=== PATIENT | male | born 1935 | race Caucasian/White ===

== ENCOUNTER 2017-07-02 12:22 | Inpatient (IN) | payer OTHER, MEDICAID ==
[~2017-07-02] VITALS: Ht 175.3 cm; Wt 84.0 kg
[2017-07-02 17:00] VITALS: BP 154/76
[2017-07-02 17:11] VITALS: BP 153/75
[2017-07-02] MEDS ORDERED: NITROGLYCERIN 0.4 MG SL TAB SL PRN (17:15)
[2017-07-02] MEDS ORDERED: MORPHINE SULF INJ 2 MG/ML SYRINGE 1ML IV PRN ×2 (17:15→18:00)
[2017-07-02] MEDS ORDERED: ONDANSETRON HCL 4 MG/2 ML VIAL IV PRN (18:00)
[2017-07-02] MEDS ORDERED: HYDROcodone-ACET 5/325MG TAB PO PRN (18:00)
[2017-07-02] MEDS ORDERED: ACETAMINOPHEN 325 MG TAB PO PRN (18:00)
[2017-07-02] MEDS ORDERED: CLOPIDOGREL BISULFATE 75 MG TAB PO ONE (18:30)
[2017-07-02] MEDS ORDERED: ASPirin 81 mg TAB PO ONE (18:30)
[2017-07-02] MEDS ORDERED: PANTOPRAZOLE 40 MG TAB PO ONE (18:30)
[2017-07-02] MEDS ORDERED: amLODIPine BESYLATE 5 MG TAB PO ONE (18:30)
[2017-07-02] MEDS: SODIUM CHLORIDE 0.9% 1,000 ML IV SCH (18:46)
[2017-07-02] MEDS ORDERED: InsuLIN REG 1unit/0.01ml Soln (100units/ml) SC ONE (19:00)
[2017-07-02 20:00] VITALS: BP 145/73
[2017-07-02] MEDS: ENOXAPARIN SOD 80 MG/0.8ML SYRINGE SC SCH (21:01)
[2017-07-02 21:35] VITALS: BP 145/73
[2017-07-02] MEDS: ATORVASTATIN 20 MG TAB PO SCH (21:37)
[2017-07-02] MEDS: InsuLIN REG 1unit/0.01ml Soln (100units/ml) SC SCH (22:00)
[2017-07-02] MEDS ORDERED: PANTOPRAZOLE 40 MG TAB PO SCH (22:00)
[2017-07-02] MEDS: INSULIN DETEMIR(LEVEMIR) 1unit/0.01ml Soln (100units/ml) SC SCH (22:00)
[2017-07-02] MEDS: GABAPENTIN 300 MG CAP PO SCH (22:07)
[2017-07-02] MEDS: ACCU-CHEK COMFORT CURVE STRIP VI SCH (22:08)
[2017-07-03 02:43] LABS: Urine Bilirubin Negative (Negative); Urine Blood Negative /uL (Negative); Urine Color Colorless (Yellow); Urine Glucose Normal (Normal); Urine Ketone Negative (Negative); Urine Nitrite Negative (Negative); Urine RBC 4 /hpf (0 - 3); Urine Urobilinogen Normal (Negative)
[2017-07-03] MEDS: SODIUM CHLORIDE 0.9% 1,000 ML IV SCH ×2 (03:32→15:11)
[2017-07-03 05:40] VITALS: BP 143/71
[2017-07-03] MEDS: ACCU-CHEK COMFORT CURVE STRIP VI SCH ×4 (06:19→22:03)
[2017-07-03] MEDS: InsuLIN REG 1unit/0.01ml Soln (100units/ml) SC SCH ×5 (06:19→22:03)
[2017-07-03 06:25] LABS: Basophils # (auto) 0 uL; Basophils % (auto) 0.4 % (0.0-2.0); CONDITION Y; Eosinophils # (auto) 0.2 uL; Eosinophils % (auto) 3.9 % (0.0-7.0); Hematocrit 34.3 % (41.0-53.0); Hemoglobin 11.2 g/dL (13.5-17.5); Lymphocytes % (auto) 32.4 % (10.0-50.0); Mean Corpuscular Hemoglobin 28.9 pg (28.0-32.0); Mean Corpuscular Hgb Conc. 32.7 g/dL (32.0-36.0); Mean Corpuscular Volume 88.4 fL (80.0-100.0); Mean Platelet Volume 9.6 fL (7.4-10.4); Monocytes # (auto) 0.7 uL; Monocytes % (auto) 11.2 % (0.0-12.0); Neutrophils # (auto) 3.2 uL; Neutrophils % (auto) 52.1 % (37.0-80.0); Platelet Count (auto) 175 10^3/uL (140-450); Red Cell Distribution Width 16.9 % (11.6-16.0); White Blood Cell 6.1 10^3/uL (4.4-10.8)
[2017-07-03] MEDS: LEVOTHYROXINE SODIUM 25 MCG TAB PO SCH (06:40)
[2017-07-03 06:51] LABS: INR 1.05 (0.9-1.15); Partial Thromboplastin Time 28.4 sec (22.64-33.71); Prothrombin Time 11.5 sec (9.37-12.3)
[2017-07-03 06:53] LABS: BUN/Creatinine Ratio 9.3; Calcium 8.3 mg/dL (8.5-10.1); Potassium 3.3 mmol/L (3.5-5.1)
[2017-07-03] MEDS ORDERED: DEXTROSE (50%) 50ML SYRG IV ONE (07:30)
[2017-07-03] MEDS ORDERED: LIDOCAINE 2%HCL (LOCAL ANESTH.) INJ 20ML MDV ONE (07:51)
[2017-07-03] MEDS ORDERED: IODIXANOL 320MG/ML 100ML BTL IV ONE (07:51)
[2017-07-03 08:00] VITALS: BP 163/73
[2017-07-03] MEDS ORDERED: ANGIOMAX 250 MG VIAL IV ONE (08:13)
[2017-07-03] MEDS ORDERED: fentaNYL CITRATE 100 MCG/2 ML VL ONE (08:14)
[2017-07-03] MEDS ORDERED: MIDAZOLAM HCL 1MG/1ML-2 ML VIAL ONE (08:14)
[2017-07-03] MEDS ORDERED: SODIUM CHL 0.9% 50 ML ONE (08:14)
[2017-07-03 08:22] VITALS: BP 163/77
[2017-07-03] MEDS: amLODIPine BESYLATE 5 MG TAB PO SCH (08:27)
[2017-07-03] MEDS ORDERED: EPTIFIBATIDE INJ (2MG/ML) 10ML VIAL IV ONE (09:13)
[2017-07-03] MEDS ORDERED: CLOPIDOGREL 300 MG TAB ONE (09:13)
[2017-07-03] MEDS ORDERED: ASPirin 325 MG TAB ONE (09:13)
[2017-07-03] MEDS ORDERED: hydrALAZINE HCL 20 MG/ML VL ONE (09:23)
[2017-07-03] MEDS: ASPirin 81 mg TAB PO SCH (10:00)
[2017-07-03] MEDS ORDERED: LISINOPRIL 10 MG TAB PO SCH (10:00)
[2017-07-03] MEDS: CLOPIDOGREL BISULFATE 75 MG TAB PO SCH (10:00)
[2017-07-03 12:15] VITALS: BP 152/69
[2017-07-03] MEDS: PANTOPRAZOLE 40 MG TAB PO SCH (15:09)
[2017-07-03 16:34] VITALS: BP 149/69
[2017-07-03] MEDS ORDERED: GABA-497 PO (16:41)
[2017-07-03] MEDS ORDERED: OMEP20CA74 PO (16:41)
[2017-07-03] MEDS ORDERED: ATOR20TA50 PO (16:41)
[2017-07-03] MEDS ORDERED: LEVEMIR SC (16:41)
[2017-07-03] MEDS ORDERED: AMLO10TA2 PO (16:41)
[2017-07-03] MEDS ORDERED: LEVO137T3 PO (16:41)
[2017-07-03] MEDS ORDERED: CLON0.2T PO (16:41)
[2017-07-03] MEDS: ENOXAPARIN SOD 80 MG/0.8ML SYRINGE SC SCH (21:00)
[2017-07-03] MEDS: INSULIN DETEMIR(LEVEMIR) 1unit/0.01ml Soln (100units/ml) SC SCH (21:51)
[2017-07-03 22:00] VITALS: BP 134/65
[2017-07-03] MEDS: CARVEDILOL 12.5 MG TAB PO SCH (22:02)
[2017-07-03] MEDS: ATORVASTATIN 20 MG TAB PO SCH (22:03)
[2017-07-03] MEDS: GABAPENTIN 300 MG CAP PO SCH (22:03)
[2017-07-04 05:00] VITALS: BP 120/55
[2017-07-04 06:02] LABS: Basophils # (auto) 0 uL; Basophils % (auto) 0.2 % (0.0-2.0); CONDITION Y; Eosinophils # (auto) 0.2 uL; Eosinophils % (auto) 2.7 % (0.0-7.0); Hematocrit 31.4 % (41.0-53.0); Hemoglobin 10.3 g/dL (13.5-17.5); Lymphocytes # (auto) 1.9 uL; Lymphocytes % (auto) 24.1 % (10.0-50.0); Mean Corpuscular Hgb Conc. 32.9 g/dL (32.0-36.0); Mean Corpuscular Volume 88.2 fL (80.0-100.0); Mean Platelet Volume 9.5 fL (7.4-10.4); Monocytes # (auto) 0.8 uL; Monocytes % (auto) 9.8 % (0.0-12.0); Neutrophils # (auto) 4.9 uL; Neutrophils % (auto) 63.2 % (37.0-80.0); Platelet Count (auto) 169 10^3/uL (140-450); Red Cell Distribution Width 16.7 % (11.6-16.0); White Blood Cell 7.7 10^3/uL (4.4-10.8)
[2017-07-04 06:23] LABS: Calcium 7.9 mg/dL (8.5-10.1); Magnesium 1.6 mg/dL (1.6-2.6); Potassium 4.3 mmol/L (3.5-5.1)
[2017-07-04 06:26] LABS: BUN/Creatinine Ratio 8.4
[2017-07-04] MEDS: ACCU-CHEK COMFORT CURVE STRIP VI SCH ×4 (06:36→21:59)
[2017-07-04] MEDS: LEVOTHYROXINE SODIUM 25 MCG TAB PO SCH (06:36)
[2017-07-04] MEDS: InsuLIN REG 1unit/0.01ml Soln (100units/ml) SC SCH ×4 (06:40→21:59)
[2017-07-04] MEDS: CARVEDILOL 12.5 MG TAB PO SCH ×2 (09:21→22:09)
[2017-07-04] MEDS: SODIUM CHLORIDE 0.9% 1,000 ML IV SCH ×3 (09:21→20:00)
[2017-07-04] MEDS: ASPirin 81 mg TAB PO SCH (09:21)
[2017-07-04] MEDS: amLODIPine BESYLATE 5 MG TAB PO SCH (09:22)
[2017-07-04] MEDS: CLOPIDOGREL BISULFATE 75 MG TAB PO SCH (09:22)
[2017-07-04] MEDS: PANTOPRAZOLE 40 MG TAB PO SCH (09:23)
[2017-07-04 09:24] VITALS: BP 147/52
[2017-07-04 12:10] VITALS: BP 129/65
[2017-07-04] MEDS ORDERED: LEVO175T31 PO (12:22)
[2017-07-04] MEDS ORDERED: CHOL20007 OR (12:22)
[2017-07-04] MEDS ORDERED: DONE10TA37 PO (12:22)
[2017-07-04] MEDS ORDERED: INSLANTI SC (12:22)
[2017-07-04] MEDS ORDERED: ASPI81TA27 PO (12:22)
[2017-07-04] MEDS ORDERED: LOSA50TA6 PO (12:23)
[2017-07-04] MEDS ORDERED: GABA-497 PO (12:25)
[2017-07-04] MEDS ORDERED: TAMS0.4C36 PO (12:25)
[2017-07-04] MEDS ORDERED: TOLT2CAP7 PO (12:26)
[2017-07-04 16:59] VITALS: BP 135/83
[2017-07-04] MEDS: ENOXAPARIN SOD 80 MG/0.8ML SYRINGE SC SCH (21:59)
[2017-07-04 22:00] VITALS: BP 146/74
[2017-07-04] MEDS ORDERED: INSULIN DETEMIR(LEVEMIR) 1unit/0.01ml Soln (100units/ml) SC SCH (22:00)
[2017-07-04] MEDS: ATORVASTATIN 20 MG TAB PO SCH (22:09)
[2017-07-04] MEDS: GABAPENTIN 300 MG CAP PO SCH (22:09)
[2017-07-05 05:00] VITALS: BP 175/76
[2017-07-05] MEDS: DEXTROSE (50%) 50ML SYRG IV PRN ×2 (05:14→06:55)
[2017-07-05] MEDS: D5W/SOD CHLO 0.9% 1,000 ML IV SCH ×2 (05:51→21:09)
[2017-07-05] MEDS: SODIUM CHLORIDE 0.9% 1,000 ML IV SCH ×2 (05:52→16:24)
[2017-07-05 05:55] LABS: Basophils # (auto) 0 uL; Basophils % (auto) 0.6 % (0.0-2.0); Eosinophils # (auto) 0.3 uL; Eosinophils % (auto) 4.2 % (0.0-7.0); Hemoglobin 11.9 g/dL (13.5-17.5); Lymphocytes # (auto) 2.9 uL; Lymphocytes % (auto) 35.4 % (10.0-50.0); Mean Corpuscular Hemoglobin 28.7 pg (28.0-32.0); Mean Corpuscular Hgb Conc. 32.9 g/dL (32.0-36.0); Mean Corpuscular Volume 87.1 fL (80.0-100.0); Mean Platelet Volume 8.8 fL (7.4-10.4); Monocytes # (auto) 0.9 uL; Monocytes % (auto) 11.3 % (0.0-12.0); Neutrophils % (auto) 48.5 % (37.0-80.0); Nucleated Red Blood Cells % 0.1 %; Platelet Count (auto) 182 10^3/uL (140-450); Red Cell Distribution Width 16.3 % (11.6-16.0); White Blood Cell 8.2 10^3/uL (4.4-10.8)
[2017-07-05] MEDS: ACCU-CHEK COMFORT CURVE STRIP VI SCH ×7 (06:00→23:49)
[2017-07-05 06:19] LABS: Calcium 8.4 mg/dL (8.5-10.1); Magnesium 1.6 mg/dL (1.6-2.6); Potassium 3.1 mmol/L (3.5-5.1)
[2017-07-05 06:21] LABS: BUN/Creatinine Ratio 10.6
[2017-07-05] MEDS: LEVOTHYROXINE SODIUM 25 MCG TAB PO SCH (07:07)
[2017-07-05 09:00] VITALS: BP 99/66
[2017-07-05] MEDS: amLODIPine BESYLATE 5 MG TAB PO SCH (10:00)
[2017-07-05] MEDS: CARVEDILOL 12.5 MG TAB PO SCH ×2 (10:00→21:26)
[2017-07-05] MEDS: ASPirin 81 mg TAB PO SCH (10:09)
[2017-07-05] MEDS: PANTOPRAZOLE 40 MG TAB PO SCH (10:10)
[2017-07-05] MEDS: CLOPIDOGREL BISULFATE 75 MG TAB PO SCH (10:10)
[2017-07-05 12:00] VITALS: BP 106/76
[2017-07-05] MEDS ORDERED: DEXTROSE (50%) 50ML SYRG IV PRN (14:30)
[2017-07-05] MEDS: InsuLIN REG 1unit/0.01ml Soln (100units/ml) SC SCH ×3 (16:53→23:57)
[2017-07-05 17:20] VITALS: BP 185/82
[2017-07-05] MEDS: hydrALAZINE HCL 20 MG/ML VL IV PRN (18:24)
[2017-07-05 20:00] VITALS: BP 150/73
[2017-07-05] MEDS: ATORVASTATIN 20 MG TAB PO SCH (21:25)
[2017-07-05] MEDS: GABAPENTIN 300 MG CAP PO SCH (21:26)
[2017-07-05] MEDS: ENOXAPARIN SOD 80 MG/0.8ML SYRINGE SC SCH (21:26)
[2017-07-06] MEDS: ACCU-CHEK COMFORT CURVE STRIP VI SCH ×5 (02:00→17:29)
[2017-07-06] MEDS: SODIUM CHLORIDE 0.9% 1,000 ML IV SCH ×2 (02:54→12:47)
[2017-07-06 05:00] VITALS: BP 146/66
[2017-07-06] MEDS: LEVOTHYROXINE SODIUM 25 MCG TAB PO SCH ×2 (05:12→05:46)
[2017-07-06] MEDS: InsuLIN REG 1unit/0.01ml Soln (100units/ml) SC SCH ×3 (05:17→17:29)
[2017-07-06 06:05] LABS: Basophils # (auto) 0 uL; Basophils % (auto) 0.6 % (0.0-2.0); Eosinophils # (auto) 0.2 uL; Eosinophils % (auto) 3.7 % (0.0-7.0); Hematocrit 33.8 % (41.0-53.0); Hemoglobin 11.2 g/dL (13.5-17.5); Lymphocytes # (auto) 2.1 uL; Lymphocytes % (auto) 32.9 % (10.0-50.0); Mean Corpuscular Hemoglobin 28.9 pg (28.0-32.0); Mean Corpuscular Volume 87.7 fL (80.0-100.0); Mean Platelet Volume 8.9 fL (7.4-10.4); Monocytes # (auto) 0.8 uL; Monocytes % (auto) 12.1 % (0.0-12.0); Neutrophils # (auto) 3.2 uL; Neutrophils % (auto) 50.7 % (37.0-80.0); Nucleated Red Blood Cells % 0.1 %; Platelet Count (auto) 143 10^3/uL (140-450); Red Cell Distribution Width 16.8 % (11.6-16.0); White Blood Cell 6.3 10^3/uL (4.4-10.8)
[2017-07-06 06:34] LABS: BUN/Creatinine Ratio 9.1; Calcium 7.6 mg/dL (8.5-10.1); Magnesium 1.5 mg/dL (1.6-2.6); Phosphorus 2.7 mg/dL (2.5-4.90); Potassium 4.2 mmol/L (3.5-5.1)
[2017-07-06 07:44] VITALS: BP 167/74
[2017-07-06] MEDS: PANTOPRAZOLE 40 MG TAB PO SCH (10:36)
[2017-07-06] MEDS: ASPirin 81 mg TAB PO SCH (10:37)
[2017-07-06] MEDS: CARVEDILOL 12.5 MG TAB PO SCH ×2 (10:37→21:58)
[2017-07-06] MEDS: CLOPIDOGREL BISULFATE 75 MG TAB PO SCH (10:37)
[2017-07-06] MEDS: amLODIPine BESYLATE 5 MG TAB PO SCH (10:38)
[2017-07-06 12:00] VITALS: BP 174/76
[2017-07-06] MEDS: hydrALAZINE HCL 20 MG/ML VL IV PRN (12:03)
[2017-07-06] MEDS: D5W/SOD CHLO 0.9% 1,000 ML IV SCH (12:48)
[2017-07-06] MEDS: INSULIN DETEMIR(LEVEMIR) 1unit/0.01ml Soln (100units/ml) SC SCH (15:55)
[2017-07-06] MEDS ORDERED: MAGNESIUM OXIDE 400 MG TAB PO ONE (16:45)
[2017-07-06 17:00] VITALS: BP 144/60
[2017-07-06] MEDS: MAGNESIUM SULFATE 1GM/100ML 100 ML IV SCH ×3 (17:28→20:33)
[2017-07-06 20:00] VITALS: BP 130/58
[2017-07-06] MEDS: GABAPENTIN 300 MG CAP PO SCH (21:57)
[2017-07-06] MEDS: ATORVASTATIN 20 MG TAB PO SCH (21:57)
[2017-07-06 23:10] VITALS: BP 130/58
[2017-07-07 05:17] VITALS: BP 154/64
[2017-07-07] MEDS: InsuLIN REG 1unit/0.01ml Soln (100units/ml) SC SCH ×3 (05:49→12:21)
[2017-07-07] MEDS: ACCU-CHEK COMFORT CURVE STRIP VI SCH ×3 (05:49→12:21)
[2017-07-07] MEDS: LEVOTHYROXINE SODIUM 25 MCG TAB PO SCH (05:56)
[2017-07-07] MEDS: INSULIN DETEMIR(LEVEMIR) 1unit/0.01ml Soln (100units/ml) SC SCH (05:56)
[2017-07-07 08:00] VITALS: BP 132/62
[2017-07-07] MEDS ORDERED: amLODIPine BESYLATE 5 MG TAB PO SCH (10:00)
[2017-07-07] MEDS: CARVEDILOL 12.5 MG TAB PO SCH (10:00)
[2017-07-07] MEDS: PANTOPRAZOLE 40 MG TAB PO SCH (10:03)
[2017-07-07] MEDS: CLOPIDOGREL BISULFATE 75 MG TAB PO SCH (10:03)
[2017-07-07] MEDS: ASPirin 81 mg TAB PO SCH (10:03)
[2017-07-07 13:00] VITALS: BP 146/68
== END 2017-07-07 16:30 | disposition home health service (06) | DRG 246 ==
LOC: TELE-EAST 16:35
PROVIDERS: ADMIT Internal Medicine; ATTEND Internal Medicine
PROC: 027034Z Dilation of Coronary Artery, One Artery with Drug-eluting Intraluminal Device, Percutaneous Approach (ICD-10-PCS; principal; 2017-07-03)
PROC: 4A023N7 Measurement of Cardiac Sampling and Pressure, Left Heart, Percutaneous Approach (ICD-10-PCS; 2017-07-03)
PROC: B2111ZZ Fluoroscopy of Multiple Coronary Arteries using Low Osmolar Contrast (ICD-10-PCS; 2017-07-03)
PROC: B41J1ZZ Fluoroscopy of Other Lower Arteries using Low Osmolar Contrast (ICD-10-PCS; 2017-07-03)
DX: I21.4 Non-ST elevation (NSTEMI) myocardial infarction (principal); E13.10 Other specified diabetes mellitus with ketoacidosis without coma; N17.9 Acute kidney failure, unspecified; N18.3 Chronic kidney disease, stage 3 (moderate); E87.5 Hyperkalemia; E03.9 Hypothyroidism, unspecified; I12.9 Hypertensive chronic kidney disease with stage 1 through stage 4 chronic kidney disease, or unspecified chronic kidney disease; D64.9 Anemia, unspecified; E78.5 Hyperlipidemia, unspecified; I25.10 Atherosclerotic heart disease of native coronary artery without angina pectoris; Z79.899 Other long term (current) drug therapy
CPT/HCPCS: 36415; 71010; 78264; 80048; 81001; 82962; 83735; 84100; 85025; 85610; 85730; 87493; 93005; 97116; 97163; 97530; 99152; 99153; C1874; J1815; J2250; J2405; Q9967